=== PATIENT | male | born 1985 | race Caucasian/White ===

== ENCOUNTER 2021-06-07 00:26 | Emergency (ER) | payer OTHER ==
[~2021-06-07] VITALS: Ht 172.7 cm; Wt 108.9 kg
[~2021-06-07 00:26] MED LIST: AUGMENTIN 875875 MG PO; NAPROSYN500 MG PO; ZOFRAN ODT4 MG PO
[2021-06-07] MEDS ORDERED: PERCOCET 7.5-31 EAC1 PO (04:06)
[2021-06-07 04:26] VITALS: BP 126/100
== END 2021-06-07 04:26 | disposition home or self-care (01) ==
LOC: M.ERS 00:26
DX: S89.82XA Other specified injuries of left lower leg, initial encounter (principal); Z88.6 Allergy status to analgesic agent; X50.1XXA Overexertion from prolonged static or awkward postures, initial encounter; Y93.89 Activity, other specified; Y92.89 Other specified places as the place of occurrence of the external cause; Y99.9 Unspecified external cause status